=== PATIENT | male | born 1995 | race Caucasian/White ===

== ENCOUNTER 2019-09-17 12:05 | Emergency (ER) | payer BC ==
[~2019-09-17] VITALS: Ht 190.5 cm; Wt 86.0 kg
[2019-09-17] MEDS ORDERED: MORPHINE SULFATE 10 MG/ML CPJ IM ONE (14:30)
[2019-09-17] MEDS ORDERED: KETOROLAC 60MG/2ML VIAL IM ONE (15:15)
[2019-09-17] MEDS ORDERED: LIDOCAINE 1%/EPI 1:100,000 10 ML VIAL IJ ONE (15:30)
[2019-09-17] MEDS ORDERED: LIDOCAINE HCL/EPINEPHRINE 1%-EPI 1:100,000 20 ML VIAL INFIL ONE (15:30)
[2019-09-17 15:50] VITALS: BP 128/78
== END 2019-09-17 16:15 | disposition home or self-care (01) ==
LOC: ER 12:18
DX: S01.01XA Laceration without foreign body of scalp, initial encounter (principal); V49.9XXA Car occupant (driver) (passenger) injured in unspecified traffic accident, initial encounter; W22.10XA Striking against or struck by unspecified automobile airbag, initial encounter; Y93.89 Activity, other specified; Y92.89 Other specified places as the place of occurrence of the external cause; Y99.8 Other external cause status
CPT/HCPCS: 12002; 70450; 70486; 72125; 96372; 99284; J2270; J3490

== ENCOUNTER 2019-09-27 16:59 | Emergency (ER) | payer BC, OTHER ==
[~2019-09-27] VITALS: Ht 182.9 cm; Wt 81.0 kg
[2019-09-27 21:55] VITALS: BP 158/95
== END 2019-09-28 00:14 | disposition home or self-care (01) ==
LOC: ER 16:59
DX: Z48.02 Encounter for removal of sutures (principal)
CPT/HCPCS: 99281; Z7610